=== PATIENT | female | born 1940 | race Caucasian/White ===

== ENCOUNTER 2023-07-11 06:07 | Day surgery (SDC) | payer OTHER, SELFPAY ==
[2023-07-11] VITALS (22 sets, daily range): BP systolic 100–156; BP diastolic 58–83; PULSE 3–87; RESP 14–16; TEMP 36.2–36.7; O2SAT 95–99; BMI 28.0
--- OUTSIDE RECORDS SUMMARY | 2023-07-11 06:09 | XMS_ITS | Clinical Summary ---
Author Name Unknown Organization [facility] Address [place], [place] [address] Care Team Providers Care Bending Machine Operator Name Role Phone Jose Salazar MD Primary Care Provider Allergies No known active allergies Medications Medication Sig Dispensed Refills Start Date End Date Status Cranberry 400 mg capsule Take 400 mg by mouth once daily. 0 08/03/2015 Active Acetaminophen-Caffe ine (Excedrin Tension Headache) 500-65 mg tab Take 2 Tablets by mouth every 6 hours if needed (for Headache). 0 Active amLODIPine (NORVASC) 2.5 mg tabletIndications:E ssential hypertension with goal blood pressure less than 140/90 TAKE 1 TABLET ONE TIME DAILY 90 Tablet 0 02/11/2023 Active lisinopriL (PRINIVIL; ZESTRIL) 40 mg tabletIndications:E ssential hypertension with goal blood pressure less than 140/90 TAKE 1 TABLET ONE TIME DAILY 90 Tablet 0 05/18/2023 Active atenoloL (TENORMIN) 25 mg tabletIndications:E ssential hypertension with goal blood pressure less than 140/90 TAKE 1 TABLET EVERY DAY 90 Tablet 0 06/09/2023 Active amLODIPine (NORVASC) 5 mg tabletIndications:E ssential hypertension with goal blood pressure less than 140/90 Take 1 Tablet (5 mg) by mouth once daily. 90 Tablet 3 07/04/2023 Active estradioL (ESTRACE) 0.01% (0.1 mg/g) vaginal creamIndications:Dy suria Insert 1 g into the vagina every Monday and Monday. 42.5 g 3 08/26/2022 07/04/2023 Discontinued (*Medication adjustment) meclizine (ANTIVERT) 25 mg tabletIndications:V ertigo Take 1 Tablet (25 mg) by mouth 3 times daily if needed for Vertigo. 21 Tablet 0 01/01/2023 07/04/2023 Discontinued (*Medication adjustment) prochlorperazine (COMPAZINE) 10 mg tabletIndications:V ertigo Take 1 Tablet (10 mg) by mouth every 8 hours if needed for Nausea/Vomiti ng (vertigo). 15 Tablet 0 01/01/2023 07/04/2023 Discontinued (*Medication adjustment) Active Problems Problem Noted Date Diagnosed Date Skin lesion of face 06/24/2017 Gall stones 05/08/2014 Routine general medical exam ination at a health care facility 04/30/2013 Overview: Normal colonoscopy 2008: due in 2017 Myalgia and myositis, unspecified 01/31/2008 Other specified disorders of rotator cuff syndrome of shoulder and allied disorders 12/08/2006 Lumbago 12/03/2006 Overview: Permanent partial disability Fitting and adjustment of dental prosthetic jina ce 12/03/2006 Overview: Dentures for 35 years Symptomatic menopausal or female climacteric sta lauren 12/03/2006 Unspecified essential hypertension 12/03/2006 Resolved Problems Problem Noted Date Diagnosed Date Resolved Date Female stress incontinence 03/24/2011 0 02/17/2012 Encounters Date Type Department Care Team Description 07/04/2023 10:30 AM ISSUER Preop Visit [address] [place] [phone] Jose Salazar MD Preoperative Exam (Surgery with Dr Rodarte at [facility] on 07/11/23) 07/04/2023 Orders Only [address] [place] [address] Jose Salazar MD 2 scans: (2-Ord) 07/04/2023 07/04/2023 Travel 06/07/[address] [phone] Jose Salazar MD Refill Request (Atenolol) 05/30/[address] [place] [phone] Jose Salazar MD Questions (Uti Medication) 05/17/2023 Refill [facility] [address] [place] [phone] Jose Salazar MD Refill Request (Lisinopril) from Last 3 Months Immunizations Name Administration Dates Next Due COVID-19 vaccine (Uruut 30mcg/0.3mL) MD MAGDAV 06/17/2021 Influenza Virus, Unspecified 04/28/2003 Influenza, High-dose Inactivated 06/07/2016 Influenza, IIV3 (Age >=3 years) 04/30/2013,06/20 Influenza, IIV4 06/04/2015,05/08/2014 Influenza, Inactivated AIIV4 (Age 65+ Years) Preserv Free 05/27/2022,06/17/2021,06/15/2020 Influenza, Inactivated IIV3 (Age 65+ Years) Preserv Free 06/13/2019,06/11/2018,06/08/2017 Pneumococcal Poly,23-Valent (Pneumovax) 07/28/19 06 Pneumococcal conj 13-Valent (Prevnar 13) 015 Tdap 06/06/2016,07/28/2005 Zoster (Zostavax-ZVL, live) 12/01/2006 Family History Medical History Relation Name Comments Good Health Brother 3 Good Health Brother 4 Heart Disease Father arrhythmia Heart Disease Mother of renal failure Anesthesia Problem No Family History Cancer-breast No Family History Clotting disorder No Family History Relation Name Status Comments Brother 1 Alive Brother 2 Alive Brother 3 Brother 4 Father (Age 98) Mother (Age 88) Social History Tobacco Use Types Packs/Day Years Used Date Smoking Tobacco: Never Smokeless Tobacco: Never Alcohol Use Standard Drinks/Week Comments Not Currently 1 (1 standard drink = 0.6 oz pur e alcohol) Occasional PHQ-2 Answer Date Recorded PHQ-2 TOTAL SCORE 0 05/27/2022 Social Connections Answer Date Recorded Frequency of Communication with Friends and Fami ly Not on file 05/30/2023 Financial Resource Strain Answer Date R ecorded Difficulty of Paying Living Expenses 3 01/23/2022 Difficulty of Paying Living Expenses Not on file 01/23/2022 Food Insecurity Answer Date Recorded Worried About Running Out of Food in the Last Ye ar 1 01/23/2022 Transportation Needs Answer Date Record ed Lack of Transportation (Medical) 1 01/23/2022 Housing Stability Answer Date Recorded Unable to Pay for Housing in the Last Year 1 01/23/2022 Sex and Gender Information Value Date Recorded Sex Assigned at Not on file Gender Identity Not on file Sexual Orientation Not on file Obstetrics History Para Term AB IAB SAB Ectopic Multiple Livin g Live Births 5 5 5 0 0 0 0 0 5 Date Outcome GA Total Labor Labor/2nd/3rd Weight Sex Delivery Anes PTL Criss A1 A5 Name Cl in Term Term Term Term Term Comments Vaginal Last Filed Vital Signs Vital Sign Reading Time Taken Comments Blood Pressure 148/86 07/04/2023 10:41 AM ISSUER Pulse 78 07/04/2023 10:36 AM ISSUER Temperature 36.6 ??C (97.9 ??F) 12/31/2022 11:52 PM C DT Respiratory Rate 20 07/04/2023 10:36 AM ISSUER Oxygen Saturation 93% 07/04/2023 10:36 AM ISSUER Inhaled Oxygen Concentration - - Weight 78.5 kg (173 lb) 07/04/2023 10:36 AM ISSUER Height 167.6 cm (5' 6) 07/04/2023 10:36 AM ISSUER Body Mass Index 27.92 07/04/2023 10:36 AM ISSUER Plan of Treatment Health Maintenance Due Date Last Done Comments Zoster (shingles) series for age 50+ (2 of 3) 01/26/2007 12/01/2006 COVID-19 vaccine series ( season) 2023 06/17/2021, 09/22/2020, 09/01/2020 Influenza for age 65+ 02/17/2023 05/27/2022 , 06/17/2021, 06/15/2020, Additional history exists Depression screening for age 12+ 05/27/2023 05/27/2022, 01/24/2022, 06/15/2020, Additional history exists Medicare Wellness for age 65+ 05/27/2023, 06/15/2020, 06/13/2019, Additional history exists BMI (ht and wt on same day) for age 18+ 07/04/2024 07/04/2023, 05/27/2022, 02/22/2022, Additional history exists Tetanus booster 06/06/2026 06/06/2016, 05/19 (Completed outside of [facility]), 07/28/2005 DEXA/DXA scan for age 65+ Completed 10/07/2010, Pneumococcal series for age 65+ Completed 5, 07/28/2005 Tdap Completed 06/06/2016, 07/28/2005 Medical Devices Implanted Type Area Engine Test Cell Technician Device Identifier Shelf Expiration Date Model / Serial / Lot Eit Tlif, H 11mm, 8 Degree, 15/04 Implanted:Qty: 1 on 07/14/2021 by Bakari Presley MD at [facility] N/A: Lumbar Vertebrae 11/16/2025 / REF [id number] / [id number] Cancellous Chips, 30cc Implanted:Qty: 1 on 07/14/2021 by Bakari Presley MD at [facility] N/A: Lumbar Vertebrae Musculoskeletal Transplant 02/26/2024 / [id number] / Dbx Putty, 5cc Implanted:Qty: 1 on 07/14/2021 by Bakari Presley MD at [facility] N/A: Lumbar Vertebrae Musculoskeletal Transplant 03/19/2023 / [id number] / Titanium Matrix Bone Screws - 7.0mm X 35mm Implanted:Qty: 1 on 07/14/2021 by Bakari Presley MD at [facility] N/A: Lumbar Vertebrae Thinknum / [id number] / Titanium Matrix Bone Screws - 8.0mm X 35mm Implanted:Qty: 1 on 07/14/2021 by Bakari Presley MD at [facility] N/A: Lumbar Vertebrae DepEntrecard / .[id number] 5 / 5.5mm Titanium Curved Rods - 65mm Implanted:Qty: 2 on 07/14/2021 by Bakari Presley MD at [facility] N/A: Lumbar Vertebrae Depuy Relay / .636.06 5 / Titanium Matrix Locking Cap Implanted:Qty: 6 on 07/14/2021 by Bakari Presley MD at [facility] N/A: Lumbar Vertebrae Depuy Relay / .632.00 0 / Titanium Matrix Top Loading Polyaxial Head Implanted:Qty: 2 on 07/14/2021 by Bakari Presley MD at [facility] N/A: Lumbar Vertebrae Depuy Relay / .632.00 1 / Procedures Procedure Name Priority Date/Time Associated Diagnosis Comments BASIC METABOLIC PANEL STAT 07/04/2023 11:46 AM ISSUER Pre-op exam CBC W PLT NO DIFF Routine 07/04/2023 11: 46 AM ISSUER Pre-op exam EKG 12 LEAD Routine 07/04/2023 12:00 AM ISSUER Pre-op exam from Last 3 Months Results * CBC W PLT NO DIFF (07/04/2023 11:46 AM ISSUER) WHITE BLOOD COUNT 8.3 4.5 - 11.0 thou/cu mm 07/04/2023 11:58 AM [facility] RED BLOOD COUNT 4.88 4.00 - 5.20 mil/cu mm 07/04/2023 11:58 AM [facility] HEMOGLOBIN 15.0 12.0 - 16.0 g/dL 07/04/2023 11:58 AM [facility] HEMATOCRIT 45.9 33.0 - 51.0 % 07/04/2023 11:58 AM [facility] MCV 94 80 - 100 fL 07/04/2023 11:58 AM [facility] MCH 30.7 26.0 - 34.0 pg 07/04/2023 11:58 AM [facility] MCHC 32.7 32.0 - 36.0 g/dL 07/04/2023 11:58 AM [facility] RDW 13.3 11.5 - 15.5 % 07/04/2023 11:58 AM [facility] PLATELET COUNT 336 140 - 440 thou/cu mm 07/04/2023 11:58 AM [facility] MPV 8.9 6.5 - 11.0 fL 07/04/2023 11:58 AM [facility] Blood BLOOD SPECIMEN / Unknown Venipuncture / Unknown 07/04/2023 11:46 AM ISSUER 07/04/2023 11:46 AM [facility] Jose Salazar MD H[facility]ATOLOGY [facility] [address] [place] [address] * (ABNORMAL) BASIC METABOLIC PANEL (07/04/2023 11:46 AM [facility]) SODIUM 142 136 - 145 mmol/L 07/04/2023 12:11 PM [facility] POTASSIUM 4.2 3.5 - 5.1 mmol/L 07/04/2023 12:11 PM [facility] CHLORIDE 109(H) 98 - 107 mmol/L 07/04/2023 12:11 PM [facility] CO2,TOTAL 26 22 - 29 mmol/L 07/04/2023 12:11 PM [facility] ANION GAP 7 5 - 18 07/04/2023 12:11 PM [facility] GLUCOSE 93 70 - 99 mg/dL 07/04/2023 12:11 PM [facility] CALCIUM 9.5 8.8 - 10.2 mg/dL 07/04/2023 12:11 PM [facility] BUN 13 8 - 23 mg/dL 07/04/2023 12:11 PM [facility] CREATININE 0.79 0.50 - 0.90 mg/dL 07/04/2023 12:11 PM [facility] BUN/CREAT RATIO 16 10 - 20 12:11 PM [facility] eGFR 74(L) >90 mL/min/1.7 3m2 07/04/2023 12:11 PM [facility] Comment:As of 2021, eG FR is calculated by the CKD-EPI creatinine equation without race adjustment. ??eGFR can be influenced by muscle mass, exercise, and diet. ??The reported eGFR is an estimation only and is only applicable if the renal function is stable. Blood BLOOD SPECIMEN / Unknown Venipuncture / Unknown 07/04/2023 11:46 AM ISSUER 07/04/2023 11:46 AM ISSUER Jose Salazar MD CHEMISTRY [facility] [address] [place] [address] * EKG 12 LEAD (07/04/2023 12:00 AM ISSUER) Jose Salazar MD EKG ORD from Last 3 Months Advance Directives Documents on File Type Date Recorded Patient Presentation Manager Expl anation Healthcare Directive 07/15/2021 9:14 AM Healthcare Directive 08/23/2011 HEALTHC ARE DIRECTIVE, 04/04/2007 Healthcare Directive 08/23/2011 12:00 AM AD [place] DIRECTIVE Latest Code Status on File Code Status Date Activated Date Inactivated Comments Full Code 07/14/2021 7:24 PM 07/16/2021 12:47 PM Question Answer Comments Code Status Discussion: Reviewed Preferences Code Status History Code Status Date Activated Date Inactivated Comments Full Code 07/14/2021 11:42 AM 07/14/2021 7:13 PM Question Answer Comments Code Status Discussion: Discussed Full Code 12/08/2006 12:36 PM 12/08/2006 6:38 PM Care Teams Bending Machine Operator Relationship Specialty Start Date End Date Jose Salazar MD [address] [place] [address] PCP - General Family Practice 06/09/15
[2023-07-11] MEDS: OXYCODONE (CR) 10 MG TAB.ER.12H PO (06:30)
[2023-07-11] MEDS: CELECOXIB 200 MG CAPSULE PO (06:30)
[2023-07-11] MEDS: ACETAMINOPHEN 500 MG TABLET 1000 MG PO ×3 (06:30→20:47)
[2023-07-11] MEDS: LACTATED RINGERS 1000 ML 1,000 ML 100 ML IV ×2 (06:45→09:05)
[2023-07-11] MEDS: SODIUM CHLORIDE 0.9 % (FLUSH) 10 ML SYRINGE IVF (06:45)
[2023-07-11] MEDS: SCOPOLAMINE 1 MG/3 DAY PATCH 1 PATCH TRANSDERMA (07:00)
[2023-07-11] MEDS: fentaNYL 100 MCG/2 ML inj IVP (07:10)
[2023-07-11] MEDS: MIDAZOLAM HCL 1 MG/ML inj IVP (07:10)
--- NOTE | 2023-07-11 07:15 | CRLHL7_ITS ---
For Patients: As a result of the Cures Act, medical imaging exams and procedure reports are released immediately into your electronic medical record. You may view this report before your referring provider. If you have questions, please contact your health care provider. Indication: Hip replacement surgery Technique: AP hip fluoroscopic images. Fluoroscopy time 78.2 seconds. Findings/Impression: Hardware from a left total hip arthroplasty is in satisfactory position. Dictated by Odin Leblanc MD @ 07/11/2023 10:52:18 AM (Electronically Signed)
--- NOTE | 2023-07-11 07:23 | SUR.PREOP ---
TIME?OUT:?0710 PT/Cheyenne BARILLAS RN/Luda VEGA MDA?VERIFICATION?OF?SURGICAL?SITE,?PROCEDURE,?AND?CONSENT OBTAINED?PRIOR?TO?INVASIVE?PROCEDURE.
[2023-07-11] MEDS: CEFAZOLIN 2 GM INJ IVP (07:42)
[2023-07-11] MEDS: TRANEXAMIC ACID 100 MG/ML INJ 1000 MG IV (07:45)
--- NOTE | 2023-07-11 09:02 | CRLHL7_ITS ---
For Patients: As a result of the Cures Act, medical imaging exams and procedure reports are released immediately into your electronic medical record. You may view this report before your referring provider. If you have questions, please contact your health care provider. Indication: POST OP LEFT JOVANNY Technique: AP hip centered pelvic film and lateral view left hip Findings/Impression: Hardware from a left total hip arthroplasty is in satisfactory position. Bone alignment is normal. No sign of acute fracture. Postop changes are within normal limits. Dictated by Odin Leblanc MD @ 07/11/2023 10:51:33 AM (Electronically Signed)
--- NOTE | 2023-07-11 09:05 | PM.ORPRC ---
Procedure Note Date of procedure: 07/11/23 Procedure: PREOPERATIVE DIAGNOSIS: Left hip osteoarthritis POSTOPERATIVE DIAGNOSIS: Left hip osteoarthritis NAME OF OPERATION: Left total hip arthroplasty SURGEON: Sebas Rodarte MD OSTOMY RN: Dagmar Benjamin PA-C, DANUTA Cárdenas IMPLANTS: 1. [employer] [place] # 54 sector ingrowth cup 2. 36 x 54 +4 neutral polyethylene 3. Corail # 12 standard collared ingrowth stem 4. 36 + 1.5 global chrome femoral head ANESTHESIA: General ESTIMATED BLOOD LOSS: 500 cc COMPLICATIONS: None SPECIMENS: None DRAINS: None PREOPERATIVE ANTIBIOTICS: Ancef 2 grams INDICATIONS: The patient is a 82-year-old with a longstanding history of severe, unrelenting left hip pain secondary to end-stage left hip osteoarthritis. Despite appropriate nonoperative management, including activity modification, use of an assist device, anti-inflammatories, clir-waw-oezykmy pain medication, physical therapy and injections, they continue to have pain and disability. Operative intervention was offered. The risks, benefits and expected outcomes were discussed in detail. These included but were not limited to: Infection, bleeding, injury to blood vessel or nerve, venous thromboembolism. All questions were answered to their satisfaction. Use of an career services assistant was necessary throughout the case for patient positioning and safety, soft tissue retraction and closure. PROCEDURE: The patient was placed supine on the Yale table. General anesthesia was administered. The career services assistant made sure the patient was properly positioned. The left hip was prepped and draped in the usual sterile fashion. The image intensifier was brought in for a perfect AP pelvis and a perfect double tear drop AP view of each hip which were used for intraoperative templating with our fluoroscopic guide. An oblique incision was made 3 cm distal and 3 cm lateral to the anterior superior iliac spine. The career services assistant retracted the soft tissues to protect them. Subcutaneous dissection was taken with electrocautery to the superficial fascia. The fascia was divided in line with the incision. Blunt dissection was carried medially to the tensor fascia joanie and sartorius interval. Deep dissection was carried with electrocautery. The circumflex vessels were cauterized and divided. The capsule was exposed and then divided in a T-fashion, tagged with #1 Ethibond sutures. Retractors were placed in the joint, held by the career services assistant. The corkscrew was placed in the femoral head. The neck cut was made in the subcapital region. We made a second neck cut more distal. The napkin ring of bone was removed. The femoral head was removed intact. Acetabular retractors were placed, held by the career services assistant. The labrum was sharply debrided. The capsule was released. The 43 mm reamer was used to the true medial wall. We then enlarged in 2 mm increments using the image intensifier for our reamer placement. We impacted the cup. Fixation was suboptimal. Therefore, we placed a single 6.5 mm x 45 mm screw up the ilium which had excellent purchase. Its placement was confirmed with the image intensifier. The cup is now well-fixed. We placed the polyethylene. Attention was then turned to the proximal femur. The limb was placed in 140 degrees of external rotation, maximum extension and adduction. A significant amount of time was spent releasing the capsule to allow us to deliver the femur into the wound and complete the femoral side safely. Retractors were held by the career services assistant throughout the femoral preparation. The slip box changer and canal finder were used. Broaches were used to a stable size. The calcar reamer was used. Trial components were placed. The hip was reduced and was found to be stable with appropriate soft tissue tension. Length and offset had been nicely restored using the image intensifier and our fluoroscopic guide. Trial components were removed. The stem was impacted. We placed the femoral head. Again, the hip was reduced and was found to be stable with appropriate soft tissue tension. Length and offset had been nicely restored. The career services assistant did a three minute dilute Betadine solution soak. The career services assistant irrigated the wound with 3 liters of normal saline via pulse lavage. The career services assistant repaired the anterior capsule with a #1 Vicryl and our previously placed Ethibond sutures. The career services assistant closed the fascia over the tensor fascia joanie with a #1 PDO Stratafix, subcutaneous tissues with 2-0 Vicryl, skin with a running 3-0 Stratafix and glue. A dry dressing was applied by the career services assistant. Sponge and needle counts were correct x 2. The patient tolerated the procedure well; there were no apparent complications. They were awakened and extubated in the operating room, sent to the Post-Anesthesia Care Unit in satisfactory condition. PLAN: 1. The patient will be mobilized with physical therapy, weight-bearing as tolerates 2. Xarelto x 5 days then aspirin x 30 days will be used for DVT prophylaxis 3. The patient will be discharged once medically appropriate
--- NOTE | 2023-07-11 09:43 | W.PM.NB ---
Nerve Block Nerve Block Time Seen by Provider: 07:14 Date Seen: 07/11/23 Type of block requested by surgeon for post-operative analgesia: TERELL/LFCN Side: left Time out performed: Yes Verification of patient name: Yes Verification of date of : Yes Site marking: site marked Name of person performing procedure: [place] Continuous monitoring Was continuous monitoring of O2 sat, B/P, monitor technician, recorded every 15 minutes?: Yes Procedure Checklist: sterile prep, needles and gloves Ultrasound guided. Images saved: Yes Medications given in 5ml increments after negative aspiration: Ropivicaine %: 0.5 mL: 30 Needle gauge: 20 Decadron (mg): 10 Precedex (mcg): 25 Patient tolerated procedure well: Yes Additional comments: Needle noted below psoas tendon needle noted adjacent to LFCN Block Charges Block Charge (with Pro Fee): Other Periph Nerve Block Use of Ultrasound Machine for Block: Yes- US Guidance/pain block
--- NOTE | 2023-07-11 09:44 | W.ANESCHARGE ---
Anesthesia Charges Start Date/Time Anesthesia Start Date: 07/11/23 Anesthesia Start Time: 07:28 Stop Date/Time Anesthesia Stop Date: 07/11/23 Anesthesia Stop Time: 09:54 Summary Extremes of Age - Over 70 or under 1: MDA
--- NOTE | 2023-07-11 09:55 | W.ANESCHARGE ---
Anesthesia Charges Start Date/Time Anesthesia Start Date: 07/11/23 Anesthesia Start Time: 07:28 Stop Date/Time Anesthesia Stop Date: 07/11/23 Anesthesia Stop Time: 09:54
[2023-07-11] MEDS: LACTATED RINGERS 1000 ML 1,000 ML 75 ML IV (12:10)
--- NOTE | 2023-07-11 12:17 | PM.IMCN1 ---
Date of Consult Patient: [facility] Patient Consult date: 07/11/23 Requesting Physician: Orthopedics Primary Care Provider: Jose Salazar MD Consult Narrative Reason for consult: Medical management Narrative: Vanessa Malone is a 82 year old female past medical history significant for hypertension, lumbago, osteoarthritis is POD#0 s/p left total hip arthroplasty. Patient was reported to have low pressures intraoperatively and received ephedrine. Pressures have since been appropriate. There have been no nursing concerns reported postoperatively. Patient is sleeping after receiving general anesthesia. Oxygen is at 1 L per NC. Estimated total blood loss documented as 500 ml. Updated and reviewed the active medical problems, past medical history, past surgical history, social history, allergies and medications in our electronic EMR. Review of Systems Narrative: REVIEW OF SYSTEMS: Complete review of systems performed and negative unless otherwise stated in HPI or below. PFSH [facility] Medical History (Updated 07/11/23 @ 12:32 by Loraine Harmon PA-C) Unspecified essential hypertension ?I10 - Essential (primary) hypertension (ICD-10) Surgical History History of bladder surgery ?Z98.890 - Other specified postprocedural states (ICD-10) H/O: hysterectomy (~1999) ?Z90.710 - Acquired absence of both cervix and uterus (ICD-10) History of lumbar fusion (~06/2021) ?Z98.1 - Arthrodesis status (ICD-10) History of lumbar fusion (08/12/15) ?Z98.1 - Arthrodesis status (ICD-10) H/O arthroscopy of shoulder ?Z98.890 - Other specified postprocedural states (ICD-10) 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) ?Z96.641 - Presence of right artificial hip joint (ICD-10) S/P right knee arthroscopy (12/01/17) ?Z98.890 - Other specified postprocedural states (ICD-10) Social History Smoking Status: Never smoker Do you use any of these nicotine containing products: None Second hand tobacco smoke exposure: No How often do you have a drink containing alcohol: never AUDIT-C Alcohol total score: 0 Non-prescribed substance use: denies use Caffeine: No Meds Home Medications and Allergies Home Medications Medication Instructions Recorded Confirmed Type amlodipine 2.5 mg tablet 5 mg PO DAILY 12/05/22 07/11/23 History atenolol 25 mg tablet 25 mg PO DAILY 12/05/22 07/11/23 History lisinopril 40 mg tablet 40 mg PO DAILY 12/05/22 07/11/23 History cranberry 400 mg capsule 400 mg PO DAILY 07/07/23 07/07/23 History cuqichh-kgegcvuweswkz-bzkpshgg 250 2 tab PO Q6H PRN 07/11/23 07/11/23 History mg-250 mg-65 mg tablet (Excedrin Extra Strength) Allergies Allergy/AdvReac Type Severity Reaction Status Date / Time No Known Drug Allergies Allergy Verified 07/11/23 06:24 Exam Narrative: Exam Narrative: PHYSICAL EXAM General: Sleeping, appears comfortable HEENT: Normocephalic, atraumatic Cardiovascular: RRR. No pitting edema Pulmonary: No dyspnea on 1 L Extremities: No gross joint deformity or swelling. Postoperative dressing in place, dry. Skin: Warm, dry. Const: Vital Signs, click to edit/add: Vital Signs - 24 hr 07/11/23 06:53 07/11/23 07:10 07/11/23 07:15 Temperature 97.8 F Pulse Rate 87 73 71 Respiratory Rate 16 16 16 Blood Pressure 156/83 H 138/82 137/76 Pulse Oximetry 95 95 97 Oxygen Delivery Me thod Room Air Nasal Cannula Nasal Cannula Oxygen Flow Rate 2 2 07/11/23 09:55 07/11/23 10:00 07/11/23 10:07 Temperature 97.4 F L Pulse Rate 66 60 58 L Respiratory Rate 16 16 16 Blood Pressure 103/58 L 101/62 100/61 Pulse Oximetry 97 98 98 Oxygen Delivery Me thod Nasal Cannula Nasal Cannula Nasal Cannula Oxygen Flow Rate 2 2 2 07/11/23 10:12 07/11/23 10:17 07/11/23 10:22 Temperature 97.4 F L Pulse Rate 58 L 62 60 Respiratory Rate 16 16 16 Blood Pressure 103/62 104/60 108/66 Pulse Oximetry 99 98 98 Oxygen Delivery Me thod Nasal Cannula Nasal Cannula Nasal Cannula Oxygen Flow Rate 2 2 2 07/11/23 10:27 07/11/23 10:32 Temperature Pulse Rate 55 L 60 Respiratory Rate 16 Blood Pressure 110/59 L 118/72 Pulse Oximetry 98 99 Oxygen Delivery Me thod Nasal Cannula Nasal Cannula Oxygen Flow Rate 2 2 Assessment and Plan Assessment and plan (1) Osteoarthritis of left hip: Problem comment: -POD#0 s/p L JOVANNY -perioperative management including pain management and anticoagulation per Orthopedic surgery -encourage postoperative pulmonary hygiene -PT OT consults -plan to discharge home with daughter tomorrow Status: Acute (2) Unspecified essential hypertension: Problem comment: -continue to monitor postoperatively. Hold home medications with plan to resume on discharge. Could consider in the morning if necessary. Status: Chronic
[2023-07-11] MEDS: CEFAZOLIN 1 GM in 0.9 % SODIUM CHLORIDE Mini-bag 100 ML IVPB ×2 (13:20→20:47)
[2023-07-11] MEDS: OXYCODONE 5 MG TABLET PO ×2 (15:39→20:47)
--- NOTE | 2023-07-11 16:53 | PC.NURSE ---
Pt arrived from PACU via her hospital bed @ 1045 am s/p left total hip arthroplasty, anterior approach with Dr. Rodarte. Please see initial assessment from PACU and frequent post op VS. Pt sleepy and rating her pain at zero out of 10. I have a high pain tolerance. Dr. Harmon in to see patient, VS stable. Pt's dtr Hetal in to visit and pt stated go home, I want to sleep. IV ATB infused w/o difficulty. Maintenance fluids LR @ 75 cc/hr. Pt up to recliner with Dustin from PT at 1400 pm. Chicken noodle soup ordered for lunch. Oxygen tapered from 2L/nc to 1L/NC as pt woke up from deep sleep. Report to Colleen TRUJILLO for evening shift.
[2023-07-11] MEDS: SENNOSIDES 1 TAB TABLET 2 TAB PO (20:48)
--- NOTE | 2023-07-11 22:50 | PC.NURSE ---
Patient up with assist of 1, walker and gait belt. Demonstrates a steady gait. C/o minimal pain in her left hip. Taking oxycodone PRN for pain. Dressing is clean dry and intact. Active ice in place. Teds and SCDs are on. Tolerating eating/drinking without any nausea.
[2023-07-12 00:35] VITALS: BP 114/81; PULSE 85; PULSE 89; RESP 16; TEMP 36.4; O2SAT 92
[2023-07-12 03:00] VITALS: BP 112/53; PULSE 84; RESP 16; TEMP 36.7; O2SAT 92
[2023-07-12 06:28] LABS: Basophils Percent Auto 0.1 % (0.0-3.0); Hematocrit 33.8 % (33.0-51.0); Immature Granulocytes Pct Auto 0.2 %; Lymphocytes Percent Auto 6.9 % (20-44); Mean Corpuscular HGB Conc 33 gm/dL (32-36); Mean Corpuscular Hemoglobin 31 pg (26-34); Mean Corpuscular Volume 94 fL (80-100); Monocytes Percent Auto 7.2 % (0.0-11.0); Neutrophils Percent Auto 85.6 % (42.0-72.0); Platelet Count* 268 K/uL (140-440); RDW Coefficient of Variation % 12.9 % (11.5-15.5); Red Blood Count 3.58 m/uL (4.00-5.20); White Blood Count* 17.75 K/uL (4.50-11.00)
--- NOTE | 2023-07-12 06:36 | PC.NURSE ---
Pt alert and oriented x3. Afebrile. Pt reports 3/10 pain in left hip, pain medications offered pt refused stating I am fine, it doesn't really hurt when I am just lying here. Pt's left hip dressing is CDI. Pt is up SBA with walker and gait belt, voiding, tolerating regular diet and slept intermittently throughout night.
[2023-07-12 06:37] LABS: Slide Review Reflex No
[2023-07-12 06:44] LABS: Potassium* 4.9 mmol/L (3.6-5.1); Sodium* 137 mmol/L (135-149)
[2023-07-12 06:47] LABS: Blood Urea Nitrogen* 22 mg/dL (7-30); Creatinine* 0.7 mg/dL (0.5-1.5); Estimated Glomerular Filt Rate 85 ml/min
[2023-07-12 07:30] VITALS: BP 112/80; PULSE 73; RESP 16; TEMP 36.9; O2SAT 95
[2023-07-12] MEDS: OXYCODONE 5 MG TABLET PO (07:58)
[2023-07-12] MEDS: RIVAROXABAN 10 MG TABLET PO (07:59)
[2023-07-12] MEDS: ACETAMINOPHEN 500 MG TABLET 1000 MG PO (08:00)
[2023-07-12] MEDS: SENNOSIDES 1 TAB TABLET 2 TAB PO (08:47)
--- NOTE | 2023-07-12 09:05 | PM.ORPN ---
Subjective Subjective Time Seen by Provider: 07:10 Date Seen: 07/12/23 Principal diagnosis: Status post left hip replacement Interval history: Magda is comfortable this morning. She did not get much rest overnight. She is looking forward to going home today. Ortho Exam Narrative Exam Narrative: Alert and oriented x3. Patient is in no acute distress. Converses without labored breathing. Hearing is grossly intact. Ambulates with a walker. Examination of the left hip shows dressing is intact. Ecchymosis is present. Mild soft tissue edema. CMS intact left lower extremity. No erythema or warmth or sign of infection. Bilateral calves are soft and nontender. Const Vital Signs, click to edit/add: Vital Signs - 24 hr 07/11/23 09:55 07/11/23 10:00 07/11/23 10:07 Temperature 97.4 F L Pulse Rate 66 60 58 L Pulse Rate [Pulse Oximeter] Respiratory Rate 16 16 16 Blood Pressure 103/58 L 101/62 100/61 Blood Pressure [Left Arm] Pulse Oximetry 97 98 98 Oxygen Delivery Method Nasal Cannula Nasal Cannula Nasal Cannula Oxygen Flow Rate 2 2 2 07/11/23 10:12 07/11/23 10:17 07/11/23 10:22 Temperature 97.4 F L Pulse Rate 58 L 62 60 Pulse Rate [Pulse Oximeter] Respiratory Rate 16 16 16 Blood Pressure 103/62 104/60 108/66 Blood Pressure [Left Arm] Pulse Oximetry 99 98 98 Oxygen Delivery Method Nasal Cannula Nasal Cannula Nasal Cannula Oxygen Flow Rate 2 2 2 07/11/23 10:27 07/11/23 10:32 07/11/23 10:45 Temperature 97.8 F Pulse Rate 55 L 60 60 Pulse Rate [Pulse Oximeter] Respiratory Rate 16 14 Blood Pressure 110/59 L 118/72 Blood Pressure [Left Arm] 103/71 Pulse Oximetry 98 99 Oxygen Delivery Method Nasal Cannula Nasal Cannula Nasal Cannula Oxygen Flow Rate 2 2 07/11/23 10:48 07/11/23 11:00 07/11/23 11:00 Temperature 97.8 F Pulse Rate Pulse Rate [Pulse Oximeter] 68 62 62 Respiratory Rate 14 14 14 Blood Pressure Blood Pressure [Left Arm] 115/71 102/63 102/63 Pulse Oximetry 99 96 96 Oxygen Delivery Method Nasal Cannula Nasal Cannula Nasal Cannula Oxygen Flow Rate 1 1 1 07/11/23 11:15 07/11/23 11:30 07/11/23 12:00 Temperature Pulse Rate Pulse Rate [Pulse Oximeter] 65 59 L 3 L Respiratory Rate 14 14 16 Blood Pressure Blood Pressure [Left Arm] 116/69 109/62 117/61 Pulse Oximetry 98 97 Oxygen Delivery Method Nasal Cannula Nasal Cannula Nasal Cannula Oxygen Flow Rate 1 1 1 07/11/23 12:30 07/11/23 13:00 07/11/23 14:05 Temperature 97.1 F L 97.1 F L 97.1 F L Pulse Rate Pulse Rate [Pulse Oximeter] 62 63 82 Respiratory Rate 16 16 16 Blood Pressure Blood Pressure [Left Arm] 117/65 120/71 120/71 Pulse Oximetry 98 98 95 Oxygen Delivery Method Nasal Cannula Nasal Cannula Nasal Cannula Oxygen Flow Rate 1 1 1 07/11/23 14:05 07/11/23 19:00 07/11/23 20:47 Temperature 97.1 F L 98.1 F Pulse Rate Pulse Rate [Pulse Oximeter] 82 68 Respiratory Rate 16 16 Blood Pressure Blood Pressure [Left Arm] 120/71 116/81 Pulse Oximetry 98 98 Oxygen Delivery Method Nasal Cannula Room Air Oxygen Flow Rate 1 07/12/23 00:35 07/12/23 00:35 07/12/23 03:00 Temperature 97.6 F 98.1 F Pulse Rate Pulse Rate [Pulse Oximeter] 89 85 84 Respiratory Rate 16 16 16 Blood Pressure Blood Pressure [Left Arm] 114/81 112/53 L Pulse Oximetry 92 92 Oxygen Delivery Method Room Air Room Air Oxygen Flow Rate Assessment and Plan Assessment and plan (1) Status post left hip replacement: Problem details: Plan for discharge is today to home if they meet discharge criteria. DVT prophylaxis includes Xarelto 10 mg daily for total of 5 days, then aspirin 81 mg twice daily for 30 days, Dorian stockings x1 month may remove for 1 hr per day, frequent ambulation Remove dressing 1 week. Observe wound and phone Orthopedics with any questions or concerns Use Ice on operative hip unrestricted. Return to clinic in 1 week with PA for a wound check Return to clinic in 6 weeks with surgeon Minimize narcotic use. Wean off and discontinue soon as possible. Activities as tolerated. No strenuous activity. Attend outpt PT Status: Acute
--- NOTE | 2023-07-12 12:51 | PC.NURSE ---
Pt eval by Dagmar WHITTEN and hospitalist. Pt successfully evaluated by OT and PT. VSS. IV site discontinued. Please see eMar for meds provided. Pt and dtr Hetal verbalized understanding of d/c diagnosis, home meds, new RX , f/up appt and sx to report urgently to physician. Discharged via w/c to own home @ 1042 with personal belongings and dtr as transportation.
== END 2023-07-12 10:42 | disposition home or self-care (01) ==
LOC: OR 06:07 → MEDSURG 06:10
PROVIDERS: PCP Family Medicine; Visit Provider Orthopaedic Surgery
PROC: (CPT 27130; principal; 2023-07-11 07:15)
DX: M16.12 Unilateral primary osteoarthritis, left hip (principal); G89.18 Other acute postprocedural pain; I10 Essential (primary) hypertension; M54.50 Low back pain, unspecified
CPT/HCPCS: 27130; 01214; 36415; 64450; 73501; 76000; 76942; 82565; 84132; 84295; 84520; 85025; 86850; 86900; 86901; 97110; 97116; 97161; 97165; 97530; 97535; 99100; A9270; C1713; C1776; J0330; J0690; J1100; J1170; J2250; J2371; J2704; J2795; J3010; J7120

== ENCOUNTER 2023-07-18 14:00 | Outpatient (RCR) | payer OTHER, SELFPAY ==
--- NOTE | 2023-07-03 14:03 | PT.OPEX ---
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 She reports pain from the thigh to the knee and some groin pain. It happens when she turns wrong. She has pain at night. There is some catching and giving way. Her spine surgeon told her that her hip had arthritis. She is happy with her right hip replacement . She has never had surgery on the left hip. -Dr. Rodarte, 12/05/22; confirmed by patient Patient reports to therapy 1 week prior to left total hip arthroplasty with anterior approach scheduled for 07/11/23 . Her hip pain has been going on for several years and started gradually. It is localized to the lateral anterior hip and radiates down her anterolateral thigh to her knee. It is worse with sleeping, walking, making wrong turns, and weight- bearing activities. Functional limitations include walking, sleeping, squatting, stairs, and doing her usual exercise routine. Easing factors include PM Tylenol, Excedrin, and activity modification. She had an X-ray guided cortisone injection to her left hip in December, which was helpful temporarily. Please see pre-op note for complete home set up . Unable to fully gather how many railings/placement of railings on 2 stairs to enter due to patient stating it is no one's business how many railings she has. [facility] [place] floor with basement, but does not have to go down for first couple weeks. Patient will have her daughter fully available and staying with her for 1 full day after surgery, and she states she doesn't need anyone staying with her after that. Does have friends and neighbors available to assist as well. Previous exercise includes hip stretches, banded exercises and walking on her treadmill 15-20 min daily, but hasn't done it months due to hip pain. PMHx significant for 2 lumbar fusions and right hip replacement with Dr. Rodarte in 2017. 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 She understands she will not be able to drive immediately following surgery. Initially, patient declined any post-op therapy, but now she states she would be comfortable with one post-op visit. She owns a cane and FWW from previous surgery and was independent without gait aid at baseline. 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, farm chores during warmer season Preferred Name Magda Precautions Treatment Precautions/Contraindications History of lumbar fusion ~2021 History of lumbar fusion 08/12 Status post total replacement of right hip 06/28/16 Hypertension Weight Bearing Status Weight Bear as Tolerated Objective Other/Pertinent Objective L knee 0-0-126 R knee 0-0-135 Hip IR: lacking 10 degrees from neutral on left, 0 deg on right Hip flexion: L 80 deg R 90 deg * (pain on left) Hip ER: L 20 deg R 25 deg Strength: Hip flexors: R 5/5 L */5 Knee extensors: R 5/5 L */5 Hip abductors: R 5/5 L 5/5 *unable to fully assess due to pain Gait/balance: Ambulates with moderately antalgic gait on left, no AD. Unable to assess DL squat due to pt refusal. Palpation/joint mobility: Mild pain to palpation over anterolateral quad/anterior hip near hip flexors. Functional Test Performed & Score SL balance: 1 sec each side w/ pain on left Assessment Assessment/Impression Patient is a 82 year old presenting for pre-operative visit prior to left total hip arthroplasty on 07/11/23. Upon assessment, patient displays decreased hip ROM, decreased proximal hip strength, pain with weight-bearing activities , and antalgic gait pattern. These impairments lead to difficulty with walking, squatting, stairs, sleeping, and standing longer periods. Patient will be seen post operatively to reassess impairments that will be addressed with skilled care. Mgada would greatly benefit from skilled PT in order to progress strength, ROM, and ambulation post operatively in order to perform all household and work duties without significant difficulty or discomfort. Primary Functional Limitations walking, squatting, stairs, sleeping, and standing longer periods Plan of Care Rehabilitation Potential Good Physical Therapy Goals After pre-op visit: ? Patient will be independent with HEP. ? Patient will verbalize knowledge of stair navigation and proper sequencing. ? Patient will have knowledge on home adaptations and use of assistive devices post operatively. ? Patient will have knowledge of edema management. MET Coordination/Communication With Referral Source Treatment Plan/Direct Interventions Gait Training,Joint Mobilization,Manual Therapy, Neuromuscular Re-ed,Self-Care/ Home Management,Therapeutic Activities,Therapeutic Exercises Frequency/Duration 1x visit prior to surgery on . Patient will be scheduled to start outpatient PT s/p JOVANNY on 07/18/23 (will obtain order for this). Has HEP to start with pre- operatively. Pt consents to one visit post- operatively, but none after this. (one time visit after surgery) Patient Will Be Discharged From Therapy Completion of LTG(s), Independent w/HEP, Independently Progressing Evaluation Billing Untimed Code Treatment Minutes 15 Complexity Low Certification Information Initial Certification Date 07/03/23 Ending Certification Date 09/26/23 Provider Signature Shows Agreement With POC & Medical Necessity Physician Signature & Date Requested Please Sign/Date Here Physician Comment/Change : Physician NPI Number #
== END 2023-08-21 12:50 | disposition home or self-care (01) ==
PROVIDERS: PCP Family Medicine; Visit Provider Orthopaedic Surgery
DX: M16.12 Unilateral primary osteoarthritis, left hip (principal); Z96.642 Presence of left artificial hip joint; M62.81 Muscle weakness (generalized); R26.2 Difficulty in walking, not elsewhere classified; Z47.1 Aftercare following joint replacement surgery; M25.552 Pain in left hip; M25.652 Stiffness of left hip, not elsewhere classified; Z51.89 Encounter for other specified aftercare
CPT/HCPCS: 97110; 97161; 97164